=== PATIENT | female | born 1970 | race Caucasian/White ===

== ENCOUNTER → 2019-12-08 13:12 | Outpatient (CLI) | payer MEDICAID, SELFPAY ==
--- NOTE | 2019-12-08 13:16 | MM_ITS ---
PROCEDURE: MM DIG SCREENING MAMM BI W/CAD Digital Breast Tomosynthesis Included CLINICAL INDICATION: Routine Screening Mammogram There has been a previous lumpectomy right breast for benign disease COMPARISON: BC MAMM SCREEN BILAT DIG PNL from 02/20/2010 BC MAMM DIAG UNILAT DIG PNL from 03/09/2010 BC MAMM DIAG UNILAT DIG PNL from 09/25/2010 TECHNIQUE: Standard CC and MLO images and 3D Tomosynthesis was obtained. R2 CAD reviewed. FINDINGS: Mild to moderate fibroglandular densities are seen in both breasts. There is mild post lumpectomy scarring right breast. There is no suspicious lesion in either breast and no suspicious microcalcifications. IMPRESSION: Fibrofatty parenchyma with mild post lumpectomy scarring right breast BI-RAD Category: 2 Benign Finding(s) FOLLOW-UP: 1YR 1 Year Follow-up (A letter has been sent to the patient regarding results of the study.) Dictated by: Dr. Truong Neves MD 12/17/2019 07:[address] Truong Neves MD in [place] 12/17/2019 07:08
== END ==
PROVIDERS: PCP Nurse Practitioner Obstetrics & Gynecology; Visit Provider Nurse Practitioner Obstetrics & Gynecology
DX: Z12.31 Encounter for screening mammogram for malignant neoplasm of breast (principal)
CPT/HCPCS: 77063; 77067

== ENCOUNTER → 2020-03-21 17:38 | Outpatient (CLI) | payer MEDICAID, SELFPAY ==
[2020-03-21 18:30] LABS: Chloride 106 mmol/L (98-107); Potassium 3.8 mmoL/L (3.5-5.1); Sodium 137 mmol/L (136-145)
[2020-03-21 18:32] LABS: Alanine Aminotransferase 17 U/L (12-78); Anion Gap 12.8 mEq/L (5-15); Aspartate Amino Transferase 23 U/L (14-36); Blood Urea Nitrogen 12 mg/dl (7-17); Carbon Dioxide 22 mmol/L (22.0-30.0); Cholesterol 180 mg/dl (140-200); Estimated Glomerular Filt Rate 77 ml/min (>60); GFR (African American) 93 ML/MIN (>60); Triglycerides 157 mg/dl (30-150); VLDL Cholesterol 31 mg/dL (0-40)
[2020-03-21 18:33] LABS: Albumin Level 4.3 g/dl (3.5-5.0); Albumin/Globulin Ratio 1.7 (1.1-1.8); Alkaline Phosphatase 62 U/L (38-126); Bilirubin,Total 0.6 mg/dl (0.2-1.3); Calcium 9.5 mg/dl (8.4-10.2); Chol/HDL Ratio 3.1 (1-3.5); Globulin 2.6 g/dL (1.3-3.2); Glucose 91 mg/dl (74-100); HDL Cholesterol 59 mg/dl (40-60); Total Protein,Serum 6.9 g/dl (6.3-8.2)
[2020-03-21 18:38] LABS: Basophils # 0.5 K/mm3 (0-0.2); Basophils % 4.2 % (0.1-2.0); Eosinophils # 0.2 K/mm3 (0.0-0.4); Eosinophils % 1.9 % (0.1-12.0); Hematocrit 42.6 % (37.0-47.0); Hemoglobin 14.7 g/dL (12.2-16.2); Mean Corpuscular HGB Conc 34.5 g/dL (31.8-35.4); Mean Corpuscular Hemoglobin 32.5 pg (27.0-31.2); Mean Corpuscular Volume 94.1 fl (81-99); Mean Platelet Volume 23.6 fl (7.4-10.4); Monocytes # 0.5 K/mm3 (0.1-1.0); Monocytes % 4.1 % (1.7-9.3); Neutrophils # 6.2 K/mm3 (1.8-7.8); Neutrophils % 52.1 % (37.0-80.0); Platelet Count 203 K/mm3 (142-424); Red Blood Count 4.53 M/mm3 (4.20-5.40); Red Cell Distribution Width 14.7 % (11.5-17.5)
[2020-03-21 18:44] LABS: Direct LDL Cholesterol 94.14 mg/dL (100-129)
[2020-03-21 18:54] LABS: 25-OH Vitamin D, Total 24.4 ng/mL (30-100)
[2020-03-21 19:03] LABS: Thyroid Stimulating Hormone 1.31 uIU/mL (0.465-4.68)
== END ==
PROVIDERS: Visit Provider Nurse Practitioner Family
DX: Z00.00 Encounter for general adult medical examination without abnormal findings (principal); E55.9 Vitamin D deficiency, unspecified
CPT/HCPCS: 80053; 80061; 82306; 84436; 84443; 85025

== ENCOUNTER → 2021-01-08 19:59 | Outpatient (CLI) | payer SELFPAY | PROVIDERS: Visit Provider Nurse Practitioner Family | DX: Z20.822 Contact with and (suspected) exposure to COVID-19 (principal); J02.9 Acute pharyngitis, unspecified | CPT/HCPCS: U0003 ==